=== PATIENT | male | born 1990 | race Caucasian/White ===

== ENCOUNTER 2016-08-29 20:38 | Emergency (ER) | payer SELFPAY ==
[~2016-08-29] VITALS: Ht 175.3 cm; Wt 70.3 kg
--- NOTE | 2016-08-29 20:52 | NUR ---
PT AMBUALTORY TO ER BED 2 C/O N/V/D X 4HRS, MID ABD PAIN W/ BODY ACHES. PT AOX4 RR EVEN AND UNLABORED. NO SOB NOTED. NAD NOTED. NO NVD AT THIS TIME. PT NOT DIAPHORETIC. PT GOWNED AND PLACED ON MONITOR WAITING FOR MD SAHU.
--- NOTE | 2016-08-29 20:58 | NUR ---
DR. LOCK AT BEDSIDE FOR EVAL.
[2016-08-29] MEDS ORDERED: ONDANSETRON HCL/PF 4 MG/2 ML VIAL ONE (21:06)
[2016-08-29] MEDS ORDERED: KETOROLAC TROMETHAMINE INJ 30 MG/ML VIAL ONE (21:06)
[2016-08-29] MEDS ORDERED: IV NS 0.9% 1,000 ML ONE ×2 (21:06→21:48)
[2016-08-29] MEDS ORDERED: IV SET PRIMARY 1 EA INFUS.SET MC ONE ×2 (21:06→21:48)
[2016-08-29 21:18] LABS: CREATININE 1.1 mg/dL (0.6-1.3); POTASSIUM 4.3 mmol/L (3.5-5.1)
[2016-08-29 21:24] LABS: ALBUMIN 5.1 g/dL (3.4-5.0); BILIRUBIN,DIRECT 0.2 mg/dL (0.0-0.2); BILIRUBIN,TOTAL 0.9 mg/dL (0.2-1.0); CALCIUM, SERUM 9.4 mg/dL (8.5-10.1); TOTAL PROTEIN, SERUM 8.6 g/dL (6.4-8.2)
[2016-08-29] MEDS ORDERED: KETOROLAC TROMETHAMINE INJ 30 MG/ML VIAL IV ONE (21:30)
[2016-08-29] MEDS ORDERED: ONDANSETRON HCL/PF 4 MG/2 ML VIAL IVP ONE (21:30)
[2016-08-29] MEDS ORDERED: IV NS 0.9% 1,000 ML BAG IV ONE ×2 (21:30→22:00)
[2016-08-29 21:37] LABS: BASOPHILS % (AUTO) 0.1 % (0.0-2.0); EOSINOPHILS # (AUTO) 0.1 /CMM (0.0-0.7); EOSINOPHILS % (AUTO) 0.8 % (0.0-6.0); LYMPHOCYTES # (AUTO) 0.5 /CMM (0.8-4.8); MONOCYTES # (AUTO) 0.9 /CMM (0.1-1.30); MONOCYTES % (AUTO) 5.4 % (2.0-12.0); NEUTROPHILS # (AUTO) 14.6 /CMM (1.8-8.9); NEUTROPHILS % (AUTO) 90.7 % (43.0-81.0); PLATELET COUNT (AUTO) 168 /CMM (150-450); WHITE BLOOD COUNT (AUTO) 16.1 K/uL (4.3-11.0)
[2016-08-29 21:42] LABS: HEMATOCRIT 48 % (39-51); HEMOGLOBIN 14.8 g/dL (13.5-17.5); RED BLOOD CELL COUNT(AUTO) 7.62 MIL/uL (4.5-6.0)
[2016-08-29 21:43] LABS: MEAN CORPUSCULAR HEMOGLOBIN 19 PG (26.0-33.0); MEAN CORPUSCULAR VOLUME 63 fL (80-96)
[2016-08-29 21:44] LABS: MEAN CORPUSCULAR HGB CONC 31 g/dl (31.0-36.0)
--- NOTE | 2016-08-29 21:50 | NUR ---
DR. LOCK AT BEDSIDE SPEAKING TO PT REGARDING POC.
[2016-08-29 22:01] LABS: BAND % (MANUAL) 10 % (0.0-5.0); LYMPHOCYTES % (MANUAL) 3 % (16-48); MONOCYTES % (MANUAL) 3 % (0-11.0); NEUTROPHILS % (MANUAL) 84 (42-76)
[2016-08-29 22:02] LABS: ANISOCYTOSIS 1+; HYPOCHROMASIA 1+; PLATELET ESTIMATE ADEQUATE
--- NOTE | 2016-08-29 22:29 | NUR ---
IV removed. Catheter intact and site benign. Pressure and 4x4 applied to site. No bleeding noted. pt ambulatory with a steady gait. Patient discharged to home in stable condition. Written and verbal after care instructions given. Patient verbalizes understanding of instruction.
[2016-08-29 22:30] VITALS: BP 127/83
== END 2016-08-29 22:31 | disposition home or self-care (01) ==
LOC: ER 20:40
DX: R11.2 Nausea with vomiting, unspecified (principal); R19.7 Diarrhea, unspecified
CPT/HCPCS: 36415; 80048; 80076; 83690; 85025; 96361; 96374; 96375; 99285; A4606; J1885; J2405; J7030 ×2; Z7610